=== PATIENT | female | born 1990 | race Caucasian/White ===

== ENCOUNTER → 2017-01-08 | Outpatient (CLI) | payer OTHER | END | disposition home or self-care (01) | LOC: C.LABSPEC 15:49 | PROVIDERS: ATTEND Physician Assistant | DX: N94.10 Unspecified dyspareunia (principal) ==

== ENCOUNTER → 2017-01-29 | Outpatient (CLI) | payer OTHER | END | disposition home or self-care (01) | LOC: C.PAPS 13:20 | PROVIDERS: ATTEND Physician Assistant | DX: Z12.4 Encounter for screening for malignant neoplasm of cervix (principal) ==

== ENCOUNTER → 2017-05-14 | Outpatient (CLI) | payer OTHER ==
[2017-05-14 10:07] LABS: BASO % 0.4 %; BASO ABS # 0.03 K/uL (0-0.2); EOS % 2.9 %; HEMATOCRIT 35.2 % (37-47); HEMOGLOBIN 11.4 g/dL (12.0-16.0); LYMPH % 31.7 %; LYMPH ABS # 2.21 K/uL (1.2-3.4); MEAN CELL VOLUME 81.9 fL (80-100); MEAN CORPUSCULAR HEMOGLOBIN 26.5 pg (25-34); MEAN CORPUSCULAR HGB CONC 32.4 g/dl (32-36); MEAN PLATELET VOLUME 10.2 fL (7.4-10.4); MONO % 7.9 %; MONO ABS # 0.55 K/uL (0.11-0.59); NEUT % 57.1 %; NEUT ABS # 3.99 K/uL (1.4-6.5); PLATELET COUNT 240 K/uL (130-400); RED CELL DISTRIBUTION WIDTH CV 14.3 % (11.5-14.5); RED CELL DISTRIBUTION WIDTH SD 42.7 fL (36.4-46.3); WHITE BLOOD COUNT 6.98 K/uL (4.8-10.8)
[2017-05-14 10:31] LABS: ALBUMIN 3.5 gm/dl (3.4-5.0); ALT/SGPT 15 U/L (12-78); BLOOD UREA NITROGEN 9 mg/dl (7-18); CALCIUM 8.5 mg/dl (8.5-10.1); CARBON DIOXIDE 25 mmol/L (21-32); CREATININE 0.61 mg/dl (0.60-1.20); GLUCOSE 90 mg/dl (70-99); POTASSIUM 3.9 mmol/L (3.5-5.1); SODIUM 136 mmol/L (136-145)
[2017-05-14 10:42] LABS: ALKALINE PHOSPHATASE 46 U/L (45-117); AST/SGOT 14 U/L (15-37); TOTAL PROTEIN 7.3 gm/dl (6.4-8.2)
== END | disposition home or self-care (01) ==
LOC: C.LAB1850 09:06
PROVIDERS: ATTEND Nurse Practitioner Adult Health
DX: D64.9 Anemia, unspecified (principal); R53.83 Other fatigue

== ENCOUNTER → 2017-06-11 | Outpatient (CLI) | payer OTHER ==
--- NOTE | 2017-06-11 16:10 | DIAGNOSTIC IMAGING REPORT ---
CHEST 2 VIEWS ROUTINE CLINICAL HISTORY: R76.12 Positive QuantiFERON-TB Gold testlooking for TB changes a abnormal exam COMPARISON STUDY: No previous studies for comparison. FINDINGS: The bones soft tissues and hemidiaphragms are normal. The cardiomediastinal silhouette is normal. The lungs are clear. The pulmonary vasculature is normal. IMPRESSION: Negative chest. The above report was generated using voice recognition software. It may contain grammatical, syntax or spelling errors. Electronically signed by: Zaid Lucero M.D. 06/11/2017 4:08 PM Dictated Date/Time: 06/11/2017 4:08 PM
== END ==
LOC: C.RAD1850 15:56
PROVIDERS: ATTEND Family Medicine
DX: R76.12 Nonspecific reaction to cell mediated immunity measurement of gamma interferon antigen response without active tuberculosis (principal)

== ENCOUNTER 2018-11-14 08:14 | Inpatient (IN) ==
[2018-11-14] MEDS ORDERED: OXYTOCIN 30 UNITS/500 ML BAG IV PRN ×3 (08:49→17:00)
[2018-11-14] MEDS ORDERED: LACTATED RINGER'S 1,000 ML IV PRN (08:49)
[2018-11-14] MEDS ORDERED: PENICILLIN G POTASSIUM 6 MU in DEXTROSE 5% 250 ML IV STA (08:49)
[2018-11-14] MEDS ORDERED: PENICILLIN G POTASSIUM 3 MU in DEXTROSE 5% 100 ML IV PRN (08:49)
[2018-11-14 09:25] LABS: Hematocrit (blood only) 32.3 % (37-47); Hemoglobin 10.4 g/dL (12.0-16.0); Mean Corpuscular Hemoglobin 27.7 pg (25-34); Mean Corpuscular Volume 86.1 fL (80-100); Mean Platelet Volume 10.2 fL (7.4-10.4); Platelet Count 170 K/uL (130-400); Red Blood Count 3.75 M/uL (4.2-5.4); White Blood Count 8.25 K/uL (4.8-10.8)
[2018-11-14 09:38] LABS: Mean Corpuscular Hgb Conc 32.2 g/dL (32-36)
--- NOTE | 2018-11-14 11:13 | History & Physical Report ---
Date of Service November 14, 2018 Assessment & Plan (1) Normal in multigravida, antepartum: Admit to L&D. Start penicillin G for GBS+. Pitocin for IOL. Will plan for AROM 4h after start of antibiotics. Patient is agreeable. Unsure whether she would like epidural or not. History of Present Illness Chief Complaint: IOL, elective Primary Care Provider: Rosa M Glasgow MD 28yo @ 39 02/28 presents for elective IOL. She has history of a term male , and then a breech vaginal delivery of a baby girl at 36 weeks. 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 Patient requested induction of labor today due to her significant anxiety surrounding her prior delivery. She feels like she has PTSD after that vaginal delivery with a male physician. Also has history of asthma and reactive airway disease, migraine headaches. Positive movement, no vaginal bleeding, no leaking of fluid, no regular contractions. Allergies Allergy/AdvReac Type Severity Reaction Status Date / Time No Known Drug Allergies Allergy Mild Unknown Verified 11/11/18 11:16 Home Medications Home Medications Medication Instructions Recorded Confirmed Type 1 tab PO DAILY 09/19/18 11/14/18 History vitamin,calcium,ndhvizth-hijc-kpqik acid tablet ferrous sulfate [iron] 325 mg PO DAILY 11/03/18 11/14/18 History ranitidine HCl 150 mg PO BID 11/14/18 11/14/18 History Patient History Family History Daughter Genetic disorder Brother FHx: allergies Sister FHx: allergies Father FHx: allergies Social History Preferred Language: Spanish Communication Ability: Effective Manager Demand Required: No Beliefs That Will Affect Care: Cultural Cultural Beliefs: No males in room. marital status: Current Living Situation: Family Other Information That Helps Us Care for You: No Feels Safe at Home: Yes Safety Concerns: Feels Safe At This Time Smoking Status: Never smoker Do You Dip or Chew Tobacco: No ; Second Hand Exposure: No ; Tobacco Cessation Education Requested by Patient: No Hx Alcohol Use: No Hx Substance Use: No Review of Systems All systems reviewed & are unremarkable except as noted in HPI & below Physical Exam Constitutional: WD/WN, vitals as above Respiratory: normal respiratory effort, lungs clear to auscultation no respiratory distress Cardiovascular: Rate/Rhythm: regular rate and regular rhythm Gastrointestinal (Abdomen): Inspection/Auscultation: abdomen normal to inspection Percussion/Palpation: abdomen soft; abdomen nontender Gravid. No s/s chorio or abruption. Skin: no rashes, warm and dry Psychiatric: A+Ox3, euthymic affect Results & Data Vital Signs (Past 12 Hours) Vital Signs Temp Pulse Resp BP 11/14/18 11:07 76 16 97/64 L 11/14/18 10:52 76 20 107/72 11/14/18 10:37 79 106/76 11/14/18 10:22 77 99/69 L 11/14/18 09:24 37 C 100 H 16 104/60 11/14/18 08:39 100 H 104/60
[2018-11-14] MEDS ORDERED: BUTORPHANOL TARTRATE 1 MG/ML VIAL IV PRN (11:57)
--- NOTE | 2018-11-14 13:35 | Obstetrical Progress Note ---
Date of Service November 14, 2018 Subjective Has already completed 1 dose of Pen G and is currently on 2nd dose. AROM performed, clear fluid. SVE 6-7/80/-2. Patient tearful, very painful, declines offer for epidural. Discussed that cannot give IV narcotics just prior to delivery. FHT Cat 1, toco 3-4 min Results & Data Vital Signs (Past 12 Hours) Vital Signs Temp Pulse Resp BP 11/14/18 12:33 36.6 C 73 20 105/69 11/14/18 11:23 68 20 101/63 11/14/18 11:07 76 16 97/64 L 11/14/18 10:52 76 20 107/72 11/14/18 10:37 79 106/76 11/14/18 10:22 77 99/69 L 11/14/18 09:24 37 C 100 H 16 104/60 11/14/18 08:39 100 H 20 104/60 PG Care Time/CCT Total # of Minutes Spent Total Time Spent with Patient: Total time spent is greater than 50% in coordination of care (as documented) at patient's floor/unit and/or counseling patient:
[2018-11-14] MEDS ORDERED: ePHEDrine sulfate 50 MG/ML AMP ONE (13:49)
[2018-11-14] MEDS ORDERED: BUPIVACAINE 0.25% 30 ML VIAL ONE (13:49)
[2018-11-14] MEDS ORDERED: fentaNYL citrate 100 MCG/2 ML VIAL ONE (13:50)
[2018-11-14] MEDS ORDERED: fentaNYL 2MCG/ML ROPIV 1.25MG/ML 100 ML BAG EPI ONE (13:50)
[2018-11-14] MEDS ORDERED: KETOROLAC 30 MG/ML VIAL ONE ×2 (14:14→15:08)
--- NOTE | 2018-11-14 14:55 | Delivery Summary ---
Vaginal Delivery Summary Date of Service November 14, 2018 Vaginal Delivery Summary Vaginal Delivery Summary: Pre-delivery diagnoses: 28yo @ 39 02/28, elective induction of labor Post-delivery diagnoses: same + shoulder dystocia (mild) Procedure: spontaneous vaginal delivery Surgeon: Lilli Moncada DO Complications: none Findings: Viable female . Apgars: 9/9. Weight pending, please see nursery records. Estimated blood loss: 300ml Description of delivery: The patient progressed to complete without anesthesia. She then began to push. She spontaneously vaginally delivered a viable from the cephalic presentation. The head delivered in SWAPNIL position. There was a shoulder dystocia lasting approximately 1 minute. The head delivered, and the patient was in severe pain and began to climb up the delivery bed. The anterior shoulder did not deliver immediately, and McRobert's maneuver was attempted. This was not successful due to the patient pushing very hard with her legs, unable to comply with instruction. I attempted to calm the patient and provided instruction to her to allow for repositioning of the legs to deliver the baby, but she was unable. I attempted to deliver the posterior arm via midline sweep, however this was also unsuccessful. McRobert's was re-attempted, and this maneuver was successful a 2nd time. The anterior shoulder freed immediately and delivered, followed by the posterior shoulder, followed by the body. The baby was placed on mother's abdomen and a spontaneous cry was heard immediately. The cord was doubly clamped and cut. Cord blood was obtained. The placenta was delivered spontaneously intact with a 3-vessel cord. The uterus and vagina were swept of clots and debris. IV pitocin was given. The uterus became firm. The cervix, vagina, and perineum were inspected. A 1st degree perineal laceration was noted, and infiltrated with 1% lidocaine without epi and repaired in standard fashion with 3-0 vicryl. Excellent hemostasis was observed. Patient requested a repair "as tight as possible" because she felt that her vagina was left gaping after her previous delivery. I had discussed in the office that I would perform standard repair, reapproximating the tissue as closely as possible. I did discuss with her in the office prior to induction that I would only be able to repair raw edges, and that a full perineoplasty would not be advisable in the immediate period. She had stated understanding in our discussion in the office. I reviewed the events of the shoulder dystocia with the patient - described the maneuvers used. Baby is awake, crying, appears healthy, and is moving all 4 extremities easily. The mother and baby are recovering in stable and good condition in the room. Sponge, needle, and instrument counts were correct x 2. DO FLORINA Petit
[2018-11-14] MEDS ORDERED: BENZOCAINE 20% AER SPR 82.5 GM CAN EXT ONE (16:11)
[2018-11-14] MEDS ORDERED: ACETAMINOPHEN 325 MG TAB PO PRN (17:00)
[2018-11-14] MEDS ORDERED: HYDROCORTISONE ACETATE 25 MG SUPP PR PRN (17:00)
[2018-11-14] MEDS ORDERED: BENZOCAINE 20% AER SPR 82.5 GM CAN EXT PRN (17:00)
[2018-11-14] MEDS ORDERED: BISACODYL 10 MG SUPP PR PRN (17:00)
[2018-11-14] MEDS ORDERED: SUPERCREAM 0.870% 15 GM JAR EXT PRN (17:00)
[2018-11-14] MEDS ORDERED: DIPHTHERIA/TETANUS/PERTUSSIS 0.5 ML SYR/VIAL IM ONE (17:00)
[2018-11-14] MEDS ORDERED: OXYCODONE/ACETAMINOPHEN 5mg/325mg TAB PO PRN (17:00)
[2018-11-14] MEDS ORDERED: DOCUSATE SODIUM 100 MG CAP ONE (19:54)
[2018-11-14] MEDS: DOCUSATE SODIUM 100 MG CAP PO SCH (19:57)
[2018-11-14] MEDS: IBUPROFEN 600 MG TAB PO PRN (22:48)
[2018-11-15 06:43] LABS: Hematocrit (blood only) 30.7 % (37-47); Mean Corpuscular Hemoglobin 28.1 pg (25-34); Mean Corpuscular Hgb Conc 32.6 g/dL (32-36); Mean Corpuscular Volume 86.2 fL (80-100); Platelet Count 170 K/uL (130-400); Red Blood Count 3.56 M/uL (4.2-5.4); White Blood Count 10.78 K/uL (4.8-10.8)
[2018-11-15] MEDS: PRENATAL VITAMIN 1 TAB PO SCH (07:31)
[2018-11-15] MEDS: IBUPROFEN 600 MG TAB PO PRN ×3 (07:31→20:12)
[2018-11-15] MEDS: DOCUSATE SODIUM 100 MG CAP PO SCH ×2 (07:31→20:12)
--- NOTE | 2018-11-15 08:24 | Obstetrical Progress Note ---
Date of Service November 15, 2018 Assessment & Plan (1) : PPD#1 doing well. Routine care, anticipate DC home tomorrow. Reviewed discharge instructions. Subjective Ambulation: ambulating normally Voiding: no voiding problems Diet Tolerance:: regular diet Lochia:: Moderate Review of Systems All systems reviewed & are unremarkable except as noted in HPI & below Physical Exam Constitutional WD/WN, vitals as above no acute distress Respiratory normal respiratory effort Cardiovascular Rate/Rhythm: regular rate and regular rhythm Gastrointestinal (Abdomen) Inspection/Auscultation: abdomen normal to inspection; abdomen not distended Percussion/Palpation: abdomen soft Genitourinary OB Exam Abdomen: + fundal height Fundus: + firm; not tender Results & Data Vital Signs (Past 12 Hours) Vital Signs Temp Pulse Resp BP Pulse Ox 11/15/18 08:00 36.8 C 76 18 98/66 L 99 11/15/18 03:05 36.9 C 76 16 104/71 99 11/14/18 23:00 37 C 71 16 98/65 L 99
[2018-11-15] MEDS ORDERED: BISACODYL 5 MG TABEC PO SCH (20:00)
[2018-11-16] MEDS: IBUPROFEN 600 MG TAB PO PRN ×2 (03:42→08:20)
[2018-11-16 07:18] LABS: Hematocrit (blood only) 30.7 % (37-47); Hemoglobin 10.2 g/dL (12.0-16.0)
--- NOTE | 2018-11-16 08:16 | Obstetrical Progress Note ---
Date of Service November 16, 2018 Assessment & Plan (1) : - doing well - desires d/c - instructions given - f/u in 6 weeks Subjective Ambulation: ambulating normally Voiding: no voiding problems Feeding Type:: breast feeding Physical Exam Constitutional WD/WN, vitals as above Cardiovascular Extremities: no calf tenderness Gastrointestinal (Abdomen) Fundus firm below U Results & Data Vital Signs (Past 12 Hours) Vital Signs Temp Pulse Pulse Resp BP BP Pulse Ox 11/16/18 07:45 98.2 F 76 18 102/70 97 11/15/18 23:50 98.2 F 68 16 103/64 99
[2018-11-16] MEDS: DOCUSATE SODIUM 100 MG CAP PO SCH (08:20)
[2018-11-16] MEDS: PRENATAL VITAMIN 1 TAB PO SCH (08:20)
== END 2018-11-16 13:05 | disposition home or self-care (01) | DRG 807 ==
LOC: 4S1 08:36 → 4S2 17:24

== ENCOUNTER 2023-01-10 11:40 | Inpatient (IN) ==
[2023-01-10] MEDS ORDERED: PENICILLIN G POTASSIUM 6 MU in DEXTROSE 5% 250 ML IV STA (11:52)
[2023-01-10] MEDS ORDERED: LIDOCAINE 1% LOCAL 20 ML VIAL INFIL PRN (11:52)
[2023-01-10] MEDS ORDERED: OXYTOCIN 30 UNITS/NSS 30 UNITS/500 ML BAG IV PRN ×2 (11:52→14:01)
--- NOTE | 2023-01-10 11:55 | History & Physical Report ---
Date of Service January 10, 2023 Assessment & Plan (1) Group B streptococcal infection during : (2) Normal labor: Plan admit, treat with pcn for gbs+, fetus category one. epidural on demand. anticipate . History of Present Illness Chief Complaint: contractions Primary Care Provider: Rosa M Glasgow MD Patient is a 32yof with iup at 39 0/7 weeks who presents to labor and delivery complaining of contractions/back labor. Talked with her earlier in the day and was having back pain that did not sound like back labor but this changed, became more painful and coming and going. Also notes some VB. no lof. and Delivery Plans Hx delivery @ 36 weeks - possibly related to Yunier-Will disorder Daughter age 37-Kazxha-Mnqq Disorder - Requests 16w anatomy US Rubella Equivocal - Needs MMR after delivery GBS positive Treat in labor IOL 01/11-elective patient request OB Labs: Blood Type B Positive 06/10/22 Antibody Screen NEGATIVE 06/10/22 Hemoglobin 9.7 g/dl (12.0-16.0) L 10/29/22 Hematocrit 30.0 % (37.0-47.0) L 10/29/22 Mean Corpuscular Volume 83.7 fL (80.0-100.0) 06/10/22 Platelet Count 230 K/uL (130-400) 06/10/22 Rubella IgG Antibody Equivocal (Immune) L 06/10/22 Rapid Plasma Reagin Nonreactive (Nonreactive) 06/10/22 Hepatitis B Surface Antigen Neg (Neg) 04/14/18 Hepatitis B Surface Antigen. NON-REACTIVE (NON-REACTIVE) 06/10/22 Hepatitis C Antibody (EIA) NON-REACTIVE (NON-REACTIVE) 06/10/22 HIV (1&2) Ab and P24 Ag, 4th Gener Neg (Neg) 04/14/18 HIV (1&2) Ag and Ab Confirmation NON-REACTIVE (NON-REACTIVE) 06/10/22 Glucose 1 Hour 50 gm Load 120 mg/dl (70-130) 10/29/22 Maternal Serum Alpha Fetoprotein 42.2 NG/ML 06/07/18 OB Optional Labs: Chlamydia trachomatis RNA Not Detected (NotDetected) 06/10/22 Neisseria gonorrhoeae RNA Not Detected (NotDetected) 06/10/22 Thyroid Stimulating Hormone (TSH) 2.000 uIu/ml (0.300-4.500) 04/24/20 Alpha Fetoprotein Triple Screen SEE NOTE 06/07/18 Labs Reviewed: low risk panorama--akh HOrizon 14 neg--akh gbs positive Allergies Allergy/AdvReac Type Severity Reaction Status Date / Time No Known Drug Allergies Allergy Mild Unknown Verified 01/08/23 08:52 Home Medications Medication Instructions Recorded Confirmed Type ferrous sulfate 325 mg (65 mg 325 mg PO DAILY #30 tabs 11/12/22 01/08/23 Rx iron) tablet vitamin with calcium See Rx Instructions .Route 11/19/22 01/08/23 Rx no.72-iron 27 mg-folic acid 1 mg .COMPLEX #90 tabs tablet (M-Maikol Plus) omeprazole magnesium 20 mg 20 mg PO DAILY #30 tabs 11/26/22 01/08/23 Rx tablet,delayed release (Prilosec OTC) breast pump #1 ea 01/01/23 01/08/23 Rx Patient History Medical History Missed Positive PPD Varicella vaccination Dysmenorrhea Vitamin D deficiency Anemia Vulvitis Nose injury Ovarian cyst Esophageal reflux Abnormal genetic test during Surgical History S/P tonsillectomy Family History Daughter Genetic disorder Brother FHx: allergies Sister FHx: allergies Father FHx: allergies Denies family history of Ovarian cancer Prostate cancer Myocardial infarction Breast cancer Colorectal cancer Social History Smoking Status: Never smoker Second Hand Exposure: No; Do You Dip or Chew Tobacco: No; Hx Alcohol Use: No Hx Substance Use: No Preferred Language: Moroccan Communication Ability: Effective Electrical Contacts Adjuster Required: No Beliefs That Will Affect Care: Cultural Cultural Beliefs: No males in room. marital status: marital status details: Maria C Medellindaryl (42) [phone] Current Living Situation: Spouse and Family Current Living Situation Comment: lives with spouse, 2 children, no pets current occupational status: employed current occupation: works from home Feels Safe at Home: Yes Childhood Exposure to Second-Hand Smoke: No Dental Care, Regularly: Yes Physical Activity Frequency: 3-4 Times per Week Seatbelt Use: always Sunscreen Use: Yes Assistive Devices: None OB History Past Pregnancies Del. Date GA wks Lbr Lgth wt Sex Type del Anes Place Del Prov ? Comment 10/07/13 40 12 7-4 M Epidu ral Other [place] N 11/17/14 36 2 6-[address] [facility] [address] Crista Richardson pre-term, vaginal breech delivery baby with Yunier Will Disorder, at age 2 11/14/18 39 7lb 14.8oz F [facility] Dr. Moncada N 01/20/22 6 Aborted-Spontaneous Cytotec Physical Exam Constitutional: WD/WN, vitals as above Gastrointestinal (Abdomen): soft, gravid, nt Psychiatric: A+Ox3, euthymic affect Genitourinary: cx--stretchy 7/100/-1 toco--2 contractions on the monitor 5min apart efm--140s with mod variabiltiy, small accels, no decels Results & Data Vital Signs (Past 12 Hours) Vital Signs Pulse BP 01/10/23 11:45 81 115/78 Coding Level of Care Code None Diagnoses Group B streptococcal infection during O98.819; B95.1 Normal labor O80; Z37.9
[2023-01-10] MEDS ORDERED: Patient's HEIGHT &/or WEIGHT Needed SCH (12:00)
[2023-01-10] MEDS: LACTATED RINGER'S 1,000 ML IV PRN ×2 (12:10→12:59)
[2023-01-10] MEDS ORDERED: SODIUM CHLORIDE 0.9% PF INJ 10 ML VIAL ONE (12:15)
[2023-01-10] MEDS ORDERED: fentANYL 2 MCG/ML BUPIVacaine 0.125%-NSS 100ML BAG ONE (12:15)
[2023-01-10] MEDS ORDERED: BUPIVACAINE 0.25% PF 30 ML VIAL ONE (12:15)
[2023-01-10] MEDS ORDERED: ePHEDrine sulfate 50 MG/ML AMP ONE (12:15)
[2023-01-10] MEDS ORDERED: LIDOCAINE 2%/EPINEPHRINE 1:200,000 20 ML PF ONE (12:15)
[2023-01-10] MEDS ORDERED: fentaNYL citrate PF 100 MCG/2 ML VIAL ONE (12:15)
[2023-01-10 12:46] LABS: Hematocrit (blood only) 29.6 % (37.0-47.0); Hemoglobin 9.7 g/dl (12.0-16.0); Mean Corpuscular Hemoglobin 28.2 pg (25.0-34.0); Mean Corpuscular Hgb Conc 32.8 g/dL (32.0-36.0); Mean Platelet Volume 10.4 fL (9.4-12.4); Platelet Count 163 K/uL (130-400); RDW Coefficient of Variation 14.7 % (11.5-14.5); RDW Standard Deviation 46.3 fL (36.4-46.3); Red Blood Count 3.44 M/uL (4.20-5.40); White Blood Count 7.23 K/ul (4.8-10.8)
[2023-01-10] MEDS ORDERED: SODIUM CHLORIDE 0.9% PF INJ 10 ML VIAL EPI PRN (12:47)
[2023-01-10] MEDS ORDERED: ePHEDrine sulfate 50 MG/ML AMP IV PRN (12:47)
[2023-01-10] MEDS ORDERED: NALBUPHINE HCL 5 MG in SYRINGE 0 ML IV PRN (12:47)
[2023-01-10] MEDS ORDERED: fentaNYL citrate PF 100 MCG/2 ML VIAL EPI PRN (12:47)
[2023-01-10] MEDS ORDERED: LIDOCAINE 2% MPF LOCAL 5 ML VIAL EPI PRN (12:47)
[2023-01-10] MEDS ORDERED: fentANYL 2 MCG/ML BUPIVacaine 0.125%-NSS 100ML BAG EPI PRN (12:47)
[2023-01-10] MEDS ORDERED: NALOXONE HCL 1 MG in SODIUM CHLORIDE 0.9% 1,000 ML IV PRN (12:47)
[2023-01-10] MEDS ORDERED: LIDOCAINE 2%/EPINEPHRINE 1:200,000 20 ML PF EPI STA (12:47)
[2023-01-10] MEDS ORDERED: SODIUM CHLORIDE 0.9% PF INJ 10 ML VIAL EPI STA (12:47)
[2023-01-10] MEDS ORDERED: diphenhydrAMINE 50 MG/ML VIAL IV PRN (12:47)
[2023-01-10] MEDS ORDERED: BUPIVACAINE 0.25% PF 30 ML VIAL EPI PRN (12:47)
[2023-01-10] MEDS ORDERED: NALOXONE HCL 0.4 MG/1 ML VIAL/CARP IV PRN (12:47)
[2023-01-10] MEDS ORDERED: BUPIVACAINE 0.25% PF 30 ML VIAL EPI STA (12:47)
[2023-01-10] MEDS ORDERED: ROPIVACAINE 0.5% PF 5 MG/ML 20 ML VIAL EPI PRN (12:47)
[2023-01-10] MEDS ORDERED: fentaNYL citrate PF 100 MCG/2 ML VIAL EPI STA (12:47)
--- NOTE | 2023-01-10 12:47 | Anesthesiology Consultation ---
Date of Service January 10, 2023 Assessment & Plan Chart Review Chart Review: Acceptable Risk for Labor Epidural Consults Requested none History Height/Weight Height: 5 ft 3 in Weight: 83.915 kg Allergies Allergy/AdvReac Type Severity Reaction Status Date / Time No Known Drug Allergies Allergy Mild Unknown Verified 01/08/23 08:52 Medications Home Medications Medication Instructions Recorded Confirmed Last Taken ferrous sulfate 325 mg (65 mg 325 mg PO DAILY #30 tabs 11/12/22 01/08/23 Unknown iron) tablet vitamin with calcium See Rx Instructions .Route 11/19/22 01/08/23 Unknown no.72-iron 27 mg-folic acid 1 mg .COMPLEX #90 tabs tablet (M-Maikol Plus) omeprazole magnesium 20 mg 20 mg PO DAILY #30 tabs 11/26/22 01/08/23 Unknown tablet,delayed release (Prilosec OTC) breast pump #1 ea 01/01/23 01/08/23 Unknown Active Medications Generic Name Dose Route Start Last Admin Trade Name Freq PRN Reason Stop Dose Admin Lactated Ringer's 1,000 mls @ 125 mls/hr 01/10/23 11:52 01/10/23 12:10 Lr IV 01/12/23 11:51 999 mls/hr .Q8H PRN Administration L&D Protocol Protocol Penicillin G Potassium 6 mu/ 262 mls @ 262 mls/hr 01/10/23 11:52 01/10/23 12:25 Dextrose IV 01/10/23 12:51 262 mls/hr NOW STA Administration Past Medical History Medical History Missed Positive PPD Varicella vaccination Dysmenorrhea Vitamin D deficiency Anemia Vulvitis Nose injury Ovarian cyst Esophageal reflux Abnormal genetic test during Past Family History Family History Daughter Genetic disorder Brother FHx: allergies Sister FHx: allergies Father FHx: allergies Denies family history of Ovarian cancer Prostate cancer Myocardial infarction Breast cancer Colorectal cancer Past Surgical History Surgical History S/P tonsillectomy Social History Smoking Status: Never smoker Do You Dip or Chew Tobacco: No Hx Alcohol Use: No Hx Substance Use: No substance use type: does not use Physical Exam Vital Signs Last Vital Signs Temp 36.8 C 01/10/23 12:01 Pulse 84 01/10/23 12:42 Resp 16 01/10/23 12:01 BP 115/78 01/10/23 11:45 Pulse Ox 100 01/10/23 12:42 Constitutional WD/WN, vitals as above Psychiatric A+Ox3, euthymic affect Testing Laboratory Results 01/10/23 12:09
[2023-01-10] MEDS ORDERED: miSOPROStoL 200 MCG TAB PR ONE (14:01)
[2023-01-10] MEDS ORDERED: HYDROCORTISONE ACETATE 25 MG SUPP PR PRN (14:01)
[2023-01-10] MEDS ORDERED: ACETAMINOPHEN 325 MG TAB PO PRN (14:01)
[2023-01-10] MEDS ORDERED: bisacodyL 10 MG SUPP PR PRN (14:01)
[2023-01-10] MEDS ORDERED: BENZOCAINE 20% SPRY 85 APPLN/85 GM CAN EXT PRN (14:01)
[2023-01-10] MEDS ORDERED: DIPHTHERIA/TETANUS/PERTUSSIS Vaccine (Tdap, Age 7+yrs) 0.5mL SYR/VL IM ONE (14:01)
[2023-01-10] MEDS ORDERED: METHYLERGONOVINE MALEATE 0.2 MG/ML AMP IM ONE (14:01)
--- NOTE | 2023-01-10 14:05 | Delivery Summary ---
Vaginal Delivery Summary Date of Service January 10, 2023 Vaginal Delivery Summary [facility] Pre-operative Diagnosis: at 39 weeks active labor Post-operative Diagnosis: same Procedure: epidural repair of small supraurethral laceration EBL: 400cc Anesthesia: epidural Procedure: After receiving her epidural, the patient had srom and felt urge to push. Cephalic at +1. The patient pushed for 2 contractions to deliver a viable female infant in savannah position. The nose and mouth were bulb suctioned on the perineum and the rest of the infant was then delivered without difficulty. The baby was vigorous. The nose and mouth were again bulb suctioned and the was placed in the maternal abdomen for drying and attention. Cord was clamped and cut at one minute of life. Cord blood and segment obtained. Placenta delivered spontaneous, intact with a three vessel cord. Cervix/sulci/rectum/perineum were intact. A small supraurethral laceration was repaired in the normal standard fashion. Hemostasis obtained with dilute pitocin and fundal massage. Apgars were 8/9. Mother and baby doing well at the end of the delivery. [facility] Vaginal Delivery Charge Delivery Type Details: [facility]
--- NOTE | 2023-01-10 14:46 | Anesthesia Procedure Note ---
Date of Service January 10, 2023 Anesthesia Post Epidural Note Vital Signs Vital Signs: Temp Pulse Resp BP Pulse Ox 36.8 C 93 H 16 128/59 L 79 L 01/10/23 12:01 01/10/23 14:22 01/10/23 12:01 01/10/23 14:22 01/10/23 13:42 Notes Mental Status: alert / awake / arousable and participated in evaluation Nausea / Vomiting: adequately controlled Pain: adequately controlled Airway Patency, RR, SpO2: stable & adequate BP & HR: stable & adequate Hydration State: stable & adequate Neuraxial Anesthesia: was administered and sensory block is resolving Anesthetic Complications: no major complications apparent and Pt Satisfied with anesthetic care Epidural: Removed without complications and With tip intact
[2023-01-10] MEDS ORDERED: PENICILLIN G POTASSIUM 3 MU in DEXTROSE 5% 100 ML IV PRN (14:52)
[2023-01-10] MEDS ORDERED: Nursing to Pharmacy Communication SCH (17:45)
[2023-01-10] MEDS: IBUPROFEN 600 MG TAB PO PRN (19:14)
[2023-01-10] MEDS: DOCUSATE SODIUM SYRUP 100 MG/10 ML UDC PO SCH (19:14)
--- NOTE | 2023-01-10 19:59 | Communication Note ---
Date of Service: January 10, 2023 Nursing calling to report that the patient is noting pain in her right anterior leg a salazar area that is going up into her thigh. Nursing notes that her right leg is a bit larger/more swollen than the left. Patient notes that it has been like this in . Given her immediate PP status, will get doppler of the right let. Otherwise, well and vitals stable.
[2023-01-10] MEDS ORDERED: DOCUSATE SODIUM 100 MG CAP PO SCH (21:00)
--- NOTE | 2023-01-10 22:05 | Ultrasound Report ---
ULTRASOUND RIGHT LOWER EXTREMITY VENOUS CLINICAL HISTORY: right leg pain and swelling. COMPARISON STUDY: No priors. TECHNIQUE: Real-time, grayscale, and color Doppler sonography of the deep veins of the right lower ex tremity was performed from the inguinal crease to the calf. Compression and augmentation were utilize d. FINDINGS: There is no sonographic evidence of deep venous thrombosis identified in the right lower ex tremity. The common femoral, superficial femoral, and popliteal veins are patent and normally an sible. The greater saphenous vein and the profunda femoris vein at the junction with the common femor al vein are clear. The visualized calf veins are patent. IMPRESSION: There is no sonographic evidence of deep venous thrombosis identified in the right lower extremity. ACT 112: Negative or not required by law. Electronically signed by: Elio Cardoso M.D. 01/10/2023 10:03 PM
[2023-01-11] MEDS: IBUPROFEN 600 MG TAB PO PRN ×5 (00:39→22:30)
[2023-01-11 06:19] LABS: Hematocrit (blood only) 30.2 % (37.0-47.0); Hemoglobin 9.8 g/dl (12.0-16.0)
--- NOTE | 2023-01-11 07:06 | Obstetrical Progress Note ---
Date of Service January 11, 2023 Assessment & Plan (1) Encounter for assessment: Plan Doing well PPD#1. Routine pp care. Undecided if she would like to be d/c tonight. Will see how the day goes. Subjective Ambulation: ambulating normally Voiding: no voiding problems Passing Gas:: Yes Diet Tolerance:: regular diet Lochia:: Small Feeding Type:: breast feeding Physical Exam Constitutional WD/WN, vitals as above Cardiovascular Extremities: no calf tenderness and no edema Gastrointestinal (Abdomen) soft, nt, nd, ff/nt at u Psychiatric A+Ox3, euthymic affect Results & Data Vital Signs (Past 12 Hours) Vital Signs Temp Pulse Resp BP Pulse Ox O2 Del Method 01/11/23 03:27 36.6 C 64 18 95/62 L 99 Room Air 01/10/23 22:56 37.1 C 89 18 98/65 L 98 Room Air 01/10/23 19:15 37.2 C 92 H 18 100/65
[2023-01-11] MEDS: PRENATAL VITAMIN 1 TAB PO SCH (08:40)
[2023-01-11] MEDS: DOCUSATE SODIUM SYRUP 100 MG/10 ML UDC PO SCH (08:42)
[2023-01-11] MEDS ORDERED: bisacodyL 5 MG TABEC PO SCH (20:00)
[2023-01-11] MEDS ORDERED: Nursing to Pharmacy Communication SCH (22:15)
[2023-01-11] MEDS: DOCUSATE SODIUM 100 MG CAP PO SCH (22:30)
--- NOTE | 2023-01-12 07:02 | Obstetrical Progress Note ---
Date of Service January 12, 2023 Assessment & Plan (1) Encounter for assessment: 33 yo PP2 from , doing well -Meeting all pp milestones -B+/rubella equiv, mmr offered/ -f/u 6 weeks for appt, dc home Subjective Ambulation: ambulating normally Voiding: no voiding problems Passing Gas:: Yes Diet Tolerance:: regular diet Lochia:: Small Feeding Type:: breast feeding Pain well managed with medication Review of Systems Denies fevers, chills, n/v, PERES, CP, SOB Physical Exam Constitutional WD/WN, vitals as above no acute distress Respiratory normal respiratory effort, lungs clear to auscultation Cardiovascular RRR, no murmur, no edema Gastrointestinal (Abdomen) Percussion/Palpation: abdomen soft; abdomen nontender fundus firm at umbilicus and NT Musculoskeletal BLE symmetric, nonerythematous, nontender Results & Data Vital Signs (Past 12 Hours) Vital Signs Temp Pulse Resp BP Pulse Ox O2 Del Method 01/12/23 05:02 98.1 F 76 18 105/71 99 Room Air 01/11/23 22:06 97.9 F 69 18 109/75 99 Room Air
[2023-01-12] MEDS: IBUPROFEN 600 MG TAB PO PRN ×2 (08:43→13:12)
[2023-01-12] MEDS: DOCUSATE SODIUM 100 MG CAP PO SCH (08:43)
[2023-01-12] MEDS: PRENATAL VITAMIN 1 TAB PO SCH (08:44)
[2023-01-12] MEDS ORDERED: MEASLES, MUMPS & RUBELLA VIRUS VACCINE (MMR) VIAL SQ ONE (09:29)
== END 2023-01-12 15:27 | disposition home or self-care (01) | DRG 807 ==
LOC: OPB 11:40 → 4S1 11:41 → 4E2 16:24